=== PATIENT | male | born 1975 | race Caucasian/White ===

== ENCOUNTER 2018-02-27 13:12 | Emergency (ER) | payer BC ==
[2018-02-27] MEDS ORDERED: EPINEPHRINE 1 MG/ML 1 ML VIAL ONE (13:23)
[2018-02-27] MEDS ORDERED: EPINEPHrine AMP 1 MG/ML IM ONE (13:26)
[2018-02-27] MEDS ORDERED: Famotidine IV* 10 MG/ML 2 ML (20 mg) IV SLOW PU ONE (13:26)
[2018-02-27] MEDS ORDERED: methylPREDNISolone 125 MG* 2 ML VIAL IV ONE (13:26)
[2018-02-27] MEDS ORDERED: diPHENhydraMINE IV* 50 MG/ML 1 ml VIAL (BENADRYL) SLOW PUSH ONE (13:26)
[2018-02-27] MEDS ORDERED: NS 0.9% 1000 ML* 1,000 ML IV ONE (13:26)
--- NOTE | 2018-02-27 13:27 | ED ---
Allergic Reaction/Systemic - HPI Summary HPI Summary: 42 y/o male presents to the ED s/p sudden onset allergic reaction to being stung by bees multiple times, roughly 1.5 hours ago. Pt c/o chest heaviness and face tightness, slightly better now. Pt has no previous bee allergy know. Pt was mowing his lawn and hit two underground yellow jacket nests. 1 Benadryl taken at home. 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 Anaphylatic Verified 02/27/18 15:47 Shock PMH/Surg Hx/FS Hx/Imm Hx Previously Healthy: No Cardiovascular History: Denies: Hx Congestive Heart Failure Opthamlomology History: Denies: Hx Legally Blind - Family History Known Family History: Positive: None - Social History Alcohol Use: Rare Substance Use Type: Reports: None Smoking Status (MU): Never Smoked Tobacco Review of Systems Negative: Fever, Chills Negative: Erythema Negative: Sore Throat Positive: Chest Pain - chest heaviness Negative: Shortness Of Breath, Cough Negative: Abdominal Pain, Vomiting, Nausea Negative: dysuria, hematuria Negative: Myalgia, Edema Skin: Other - face tightness Neurological: Other - no dizziness All Other Systems Reviewed And Are Negative: Yes Physical Exam - Summary Physical Exam Summary: Constitutional: Well-developed, Well-nourished, Alert. (-) Distressed Skin: Warm, Dry. Whole body flushing. Numerous stings on LE's. HENT: Normocephalic; Atraumatic Eyes: Conjunctiva normal Neck: Musculoskeletal ROM normal neck. (-) JVD, (-) Stridor, (-) Tracheal deviation Cardio: Rhythm regular, rate normal, Heart sounds normal; Intact distal pulses; The pedal pulses are 2+ and symmetric. Radial pulses are 2+ and symmetric. (-) Murmur Pulmonary/Chest wall: Effort normal. (-) Respiratory distress, (-) Wheezes, (-) Rales Abd: Soft, (-), epigastric tenderness, (-) Distension, (-) Guarding, (-) Rebound Musculoskeletal: (-) Edema Lymph: (-) Cervical adenopathy Neuro: Alert, Oriented x3 Psych: Mood and affect Normal Triage Information Reviewed: Yes Vital Signs On Initial Exam: Initial Vitals Temp Pulse Resp BP Pulse Ox 99.4 F 109 20 131/90 96 02/27/18 13:20 02/27/18 13:20 02/27/18 13:20 02/27/18 13:20 02/27/18 13:20 Vital Signs Reviewed: Yes Diagnostics - Vital Signs Vital Signs Temp Pulse Resp BP Pulse Ox 02/27/18 13:20 99.4 F 109 20 131/90 96 - Laboratory Lab Statement: Any lab studies that have been ordered have been reviewed, and results considered in the medical decision making process. Allergic Reaction Course/Dx - Diagnoses Provider Diagnoses: Anaphylaxis, Bee sting allergy Discharge - Sign-Out/Discharge Documenting (check all that apply): Patient Departure - Discharge Plan Condition: Stable Disposition: HOME Prescriptions: predniSONE TAB* [Deltasone TAB*] 50 mg PO DAILY #5 tab Patient Education Materials: Anaphylaxis (ED), Insect Bite or Sting (ED) Referrals: [facility] [Outside] - 2 Days (PLEASE F/U IN 48 HOURS) Additional Instructions: RECOMMEND BENADRYL
[2018-02-27 16:39] VITALS: BP 101/67
== END 2018-02-27 16:38 | disposition home or self-care (01) ==
LOC: ED 13:12
DX: T63.441A Toxic effect of venom of bees, accidental (unintentional), initial encounter (principal); T78.2XXA Anaphylactic shock, unspecified, initial encounter; Y92.9 Unspecified place or not applicable; Z91.030 Bee allergy status
CPT/HCPCS: 99284; J0171; J1200; J2930